=== PATIENT | male | born 1975 | race Caucasian/White ===

== ENCOUNTER 2016-12-09 08:24 | Emergency (ER) | payer SELFPAY ==
--- NOTE | 2016-12-09 08:54 | UC ---
[facility] H[facility] - HPI Summary HPI Summary: 41 MALE PRESENTS WITH COMPLAINS OF GUM/TOOTH PAIN. - History of Current Complaint Stated Complaint: DENTAL COMPLAINT Time Seen by Provider: 12/09/16 08:49 - Allergies/Home Medications Allergies/Adverse Reactions: Allergies Allergy/AdvReac Type Severity Reaction Status Date / Time No Known Allergies Allergy Verified 12/09/16 08:56 Home Medications: Home Medications Ibuprofen TAB* [Motrin TAB* 600 MG] 600 mg PO Q12H PRN 12/09/16 [History Confirmed 12/09/16] PMH/Surg Hx/FS Hx/Imm Hx - Surgical History Surgical History: Yes Surgery Procedure, Year, and Place: APPY. LYMPH NODE LANCED R/T CAT SCRATCH FEVER. - Family History Known Family History: Positive: Hypertension - Social History Alcohol Use: Weekly Substance Use Type: None Smoking Status (MU): Current Every Day Smoker Type: Cigarettes Amount Used/How Often: 1 PPD Length of Time of Smoking/Using Tobacco: 29 Have You Smoked in the Last Year: Yes Review of Systems Constitutional: Negative Skin: Negative Eyes: Negative ENT: Dental Pain Respiratory: Negative Cardiovascular: Negative Gastrointestinal: Negative Genitourinary: Negative Motor: Negative Neurovascular: Negative Musculoskeletal: Negative Neurological: Negative Psychological: Negative All Other Systems Reviewed And Are Negative: Yes Physical Exam Triage Information Reviewed: Yes Eye Exam: Normal ENT Exam: Normal Dental: Positive: Abscess @ Neck exam: Normal Neck: Positive: 1 Respiratory Exam: Normal Cardiovascular Exam: Normal Abdominal Exam: Normal Musculoskeletal Exam: Normal Neurological Exam: Normal Psychological Exam: Normal Skin Exam: Normal Dental Complaint Course/Dx - Differential Dx/Diagnosis Provider Diagnoses: DENTAL ABSCESS. GINGIVITIS Discharge - Discharge Plan Condition: Stable Disposition: HOME Prescriptions: Amoxicillin/Clavulanate TAB* [Augmentin TAB 875*] 875 mg PO BID #14 tab Chlorhexidine MW 0.12% 473ML* [Peridex Mouth Wash 0.12%*] 15 ml MT TID PC #1 btl Naproxen [Naproxen DR 500 MG TAB] 500 mg PO BID WITH MEALS #30 tab Patient Education Materials: Toothache (ED) Referrals: No Primary Care Phys,NOPCP [Primary Care Provider] -
[2016-12-09 09:00] VITALS: BP 139/100
== END 2016-12-09 09:05 | disposition home or self-care (01) ==
LOC: UCCORT 08:24
DX: K04.7 Periapical abscess without sinus (principal); K05.10 Chronic gingivitis, plaque induced
CPT/HCPCS: 99212; G0463